=== PATIENT | female | born 1950 | race Caucasian/White ===

== ENCOUNTER → 2017-11-03 | Outpatient (CLI) | payer MEDICARE, OTHER ==
[~2017-11-03] MED LIST: ATR10 PO; CHOL100062 PO; LEVO75TA68 PO; MULT1TAB54 PO; OMEG-27 PO; [UNRECOGNIZED DRUG - CODE] PO
--- NOTE | 2017-11-04 11:29 | RADIOLOGY IMAGING REPORT ---
FACILITY: [facility] - [place] PATIENT NAME: BILLY MUKHERJEE : [id number] MR: [id number] V: [id number] EXAM DATE: [id number] ORDERING PHYSICIAN: ZAHIDA ALMARAZ TECHNOLOGIST: Maritza Barrera PROCEDURE:BILATERAL DIGITAL SCREENING MAMMOGRAM WITH CAD ASSISTED INTERPRETATION & 3D TOMOSYNTHESIS COMPARISON:Prior mammograms 10/24/16, 07/14/15, 07/21/13, 07/20/13, 02/07/12, 11/27/10. INDICATIONS:screening FINDINGS: Small to moderate amount of fibroglandular tissue is seen throughout the breasts. The parenchymal pattern has remained stable allowing for difference in mammographic technique & patient positioning. There is no evidence of malignant appearing mass, malignant appearing calcifications or other secondary sign of malignancy in either breast. DIAGNOSTIC CATEGORY 1--NEGATIVE. RECOMMENDATIONS: ROUTINE MAMMOGRAM AND CLINICAL EVALUATION. IMPRESSION: BIRADS 1: Negative. No significant abnormality is seen. Dictated by: Lori Coronado M.D. on 11/04/2017 at 9:01 Transcribed by: ANABEL on 11/04/2017 at 10:01 Approved by: Lori Coronado M.D. on 11/04/2017 at 11:27 [facility]
== END ==
LOC: MAMO 03:35
PROVIDERS: ATTEND Obstetrics & Gynecology
DX: Z12.31 Encounter for screening mammogram for malignant neoplasm of breast (principal)
CPT/HCPCS: 77063; 77067